=== PATIENT | female | born 1960 | race Caucasian/White ===

== ENCOUNTER 2024-05-10 14:01 | Emergency (ER) | payer BC, SELFPAY ==
[2024-05-10 14:06] VITALS: BP 136/74
[2024-05-10 15:01] LABS: % Basophils 0.8 % (0-2); % Eosinophils 1.5 % (0-6); % Immature Granulocytes 0.3 % (0-0.5); % Monocytes 6.2 % (1.7-9.3); % Neutrophils 71.2 % (42.2-75.2); Absolute Basophils 0.1 10^3/uL (0-0.2); Absolute Eosinophils 0.1 10^3/uL (0-0.7); Absolute Lymphocytes 1.8 10^3/uL (1.2-3.4); Absolute Monocytes 0.6 10^3/uL (0.1-0.6); Absolute Neutrophils 6.3 10^3/uL (1.4-6.5); Hematocrit 41.6 % (37.0-47.0); Hemoglobin 14.1 g/dL (12.0-16.0); Mean Corp Hgb Conc. 33.9 g/dL (33.0-37.0); Mean Corpuscular Hgb 28.3 pg (27.0-31.0); Mean Corpuscular Volume 83.5 fL (81.0-99.0); Mean Platelet Volume 9.6 fL (7.4-10.4); Nucleated Red Blood Cells % 0 %; Platelet Count 268 10^3/uL (130-400); Red Blood Cell Count 4.98 10^6/uL (4.20-5.40); Red Cell Dist. Width 12.9 % (11.5-14.5); White Blood Cell Count 8.8 10^3/uL (4.8-10.8)
[2024-05-10 15:17] LABS: ALT (SGPT) 22 U/L (0-35); AST (SGOT) 22 U/L (14-36); Albumin 4.3 g/dl (3.5-5.0); Alkaline Phosphatase 68 U/L (38-126); Blood Urea Nitrogen 24 mg/dl (7-17); Calcium 9.8 mg/dl (8.4-10.2); Carbon Dioxide 28 mmol/L (22-30); Chloride 103 mmol/L (98-107); Glucose 142 mg/dl (70-99); Potassium 4.4 mmol/L (3.5-5.1); Sodium 138 mmol/L (135-145); Total Bilirubin 0.5 mg/dl (0.2-1.3); Total Protein 6.5 g/dl (6.3-8.2); eGFR > 60.00
--- NOTE | 2024-05-10 15:43 | ED.GENMED ---
History of Present Illness
General
Chief Complaint: Musculo-Skeletal Complaint
Source: patient
Exam Limitations: none
Time Seen by Provider: 05/10/24 15:29
History of Present Illness
History of Present Illness:
63yoF with a history of prior neck surgery and prior R rotator cuff surgery presenting for evaluation of right shoulder pain x 3 weeks. Patient had a hysterectomy in the beginning of March and she was mostly bed bound for a few weeks. Patient
started with pain in her R shoulder a few weeks ago and she now has right sided neck pain the past few days. She denies any trauma or inciting incident. Pain is worse with movement. She has been to her chiropractor as well as her massage therapist
without improvement. She has been taking naproxen and Tylenol without relief. She also had leftover Tramadol that did not help. She took one dose of leftover oxycodone one night that helped her sleep. She has an MRI of her shoulder scheduled for
next month. She was not sure what to do and decided to come to the ED. No paresthesias, chest pain, shortness of breath.
Past History
Past History
ED Past Medical History: Psychiatric (Anxiety and hyperventilation syndrome. )
ED Past Surgical History: Gynecological (D&C, uterine ablation, on February 27 this year.)
Social History
Tobacco: Non-smoker
Alcohol: Occasional
Drug: None
Personal:
Living: with family
Employment: Employed
Family History
Family History: Other (Noncontributory)
Phy Exam
Physical Exam
Physical Exam:
Appears uncomfortable, non-toxic
General Physical Exam
General Presentation: well appearing
General age: appears stated age
General Skin: warm and dry
General Habitus: normal
General Mental: alert
ENT Exam
ENT Exam: normocephalic and other (No tenderness to palpation of cervical area although pain is elicited with rotation and flexion/extension of neck. No skin changes. No meningismus. )
Cardiovascular Exam
Cardiovascular Exam: normal peripheral pulses (2+ R radial pulse)
Neurological Exam
Neurological Exam: alert
[place] Coma Scale
Eye Opening: Spontaneous
Verbal Response: Oriented
Motor Response: Obeys Commands
GCS Total Score: 15
Musculoskeletal Exam
Musculoskeletal Exam: other (R shoulder is normal to inspection. She has pain with abduction above 90 degrees. )
Skin Exam
Skin Exam: normal color and warm/dry
Psychiatric Exam
Psychiatric Exam: normal mood/affect
Course
Orders/Labs/Results
Orders:
Orders
05/10/24 14:11
Electrocardiogram (*1) Urgent
Reason for Study: Other
Other Reason for Exam: neck pain, R shoulder
EKG- Treatment ONCE
05/10/24 14:26
Complete Blood Count/With Diff Urgent
Comprehensive Metabolic Panel Urgent
05/10/24 15:39
CT Cervical Spine W/o Iv Contr Urgent
Comment:
Reason For Exam: neck pain
Ketorolac [Toradol] 15 mg IV NOW STA
diazePAM [Valium Injection] 5 mg IV NOW STA
CR Shoulder - Right Min 2 View Urgent
Comment:
Reason For Exam: atraumatic pain
05/10/24 15:40
Lidocaine [Lidocaine 4% Patch] 1 patch TOPICAL ONCE ONE
Apply Lidocaine patch(s) to:: R neck
05/10/24 17:50
Ketorolac [Toradol] 15 mg IV NOW STA
05/10/24 17:58
Hydrocodone 5/APAP 325 [[place] 5/325] 1 tablet PO NOW STA
Abnormal Lab Results
05/10/24
14:26
Lymphocytes % 20.0 L %
(20.5-51.1)
BUN 24 H mg/dl
(7-17)
Glucose 142 H mg/dl
(70-99)
05/10/24 14:26
05/10/24 14:26
Vital Signs
Initial and Last Documented VS:
Initial Vital Signs
Temp Pulse Resp BP Pulse Ox
98.4 F 81 22 136/74 100
05/10/24 14:06 05/10/24 14:06 05/10/24 14:06 05/10/24 14:06 05/10/24 14:06
Last Documented Vital Signs
Temp Pulse Resp BP Pulse Ox
98.4 F 81 22 136/74 100
05/10/24 14:06 05/10/24 14:06 05/10/24 14:06 05/10/24 14:06 05/10/24 14:06
MDM/Problems Addressed
Differential Diagnosis Includes:
63yoF here with R shoulder pain x 3 weeks with R sided neck pain over the past several days. Worse with movement. No trauma. Hx of prior rotator cuff surgery. VSS. She is non-toxic appearing. There is pain with neck rotation on exam. Differential
diagnosis includes but is not limited to: muscular strain/spasm, cervical radiculopathy, calcific tendonitis, rotator cuff pathology
Initial ED plan: Basic labs and EKG obtained in triage which are unremarkable. Will check CT cervical spine and R shoulder x-rays. IV Valium, Toradol, and lidocaine patch ordered for pain.
*EKG
Interpreted by ED Provider?: Yes
EKG Intrepretation Date: 05/10/24
Heart Rate: 75
Rate: normal
Rhythm: sinus
[place]: normal axis
Interval: normal interval
QRS Pattern: normal QRS
Ischemia: no ischemia
*Critical Care Note
Total Time (30-74mins, 75-104mins- exclusive of procedures): Not Applicable
Update Note
Update Note:
Patient signed out to Hermila HENNING pending imaging results. No acute abnormality seen on R shoulder x-rays per my interpretation. Prescriptions for prednisone and Valium sent to her pharmacy. Will plan on outpatient f/u with orthopedics and
pain management.
ED Attending Note
-
Portions of this chart may have been created with voice recognition software.� Occasional wrong word or��sound alike� substitutions may have occurred due to the inherent limitations of voice recognition software.
Discharge Plan
Departure
Patient Disposition: Home (Routine Discharge)
Date of Disposition: 05/10/24
Time of Disposition: 17:55
Patient with high blood pressure during this ER visit?: No
Discharge Problem:
Neck pain on right side, Acute pain of right shoulder
Instructions: Muscle and Bone Pain (DC)
Prescriptions:
New
prednisone 50 mg tablet
50 mg PO DAILY Qty: 5 0RF
diazepam [Valium] 5 mg tablet
5 mg PO TID PRN (Reason: muscle spasm) Qty: 9 0RF
No Action
multivitamin with folic acid [Tab-A-Dameon] 1 TABLET tablet
1 tab PO DAILY
hydrocodone-acetaminophen 1 TABLET tablet
1 tab PO Q4HPRN PRN (Reason: pain) Qty: 12 0RF
cyclobenzaprine 10 MG tablet
10 mg PO TIDPRN PRN (Reason: spasm) Qty: 9 0RF
Referrals:
Mendel Gonzalez MD [Active] -
RAY CLAROS CRNP [Family Provider] -
Pee Johnson MD [Active] -
Activity Restrictions/Additional Instructions:
Take prednisone as prescribed. Continue taking Tylenol and ibuprofen as needed. Take Valium only as needed for breakthrough pain/spasms.
Please follow-up with orthopedics and pain management. Return to the ER with any new or worsening symptoms.
Interventions
Interventions:
*Risk Screen - Suicide Last Done: 05/10/24 15:49
*General Assessment Last Done: 05/10/24 15:49
*Neglect/Abuse Screening Last Done: 05/10/24 15:49
*ED COVID-19 Vaccine History Last Done: 05/10/24 15:49
*Nursing Disposition Last Done: 05/10/24 18:15
ED-Musculoskeletal Assessment Last Done: 05/10/24 15:58
Discharge Date and Time
Discharge Date/Time: 05/10/24 18:16
Print Language: MONGOLIAN
[2024-05-10] MEDS: TORADOL 15 MG IV ×2 (15:50→17:54)
[2024-05-10] MEDS: VALIUM INJECTION 5 MG IV (15:50)
[2024-05-10] MEDS: LIDOCAINE 4% PATCH 1 PATCH TOPICAL (15:57)
[2024-05-10] MEDS: NORCO 5/325 1 TABLET PO (18:02)
== END 2024-05-10 18:16 | disposition home or self-care (01) ==
LOC: EMR 14:01
PROVIDERS: Emergency Medicine; EMERGENCY PHYSICIAN Emergency Medicine; FAMILY PHYSICIAN Nurse Practitioner Gerontology
DX: M25.511 Pain in right shoulder (principal); M54.2 Cervicalgia; Z98.890 Other specified postprocedural states
CPT/HCPCS: 99285; 96374; 96375; 96376; 72125; 73030; 80053; 85025; 93005

== ENCOUNTER → 2024-05-18 06:58 | Outpatient (REF) | payer BC, SELFPAY | LOC: MRI 06:58 | PROVIDERS: ATTENDING PHYSICIAN Orthopaedic Surgery; FAMILY PHYSICIAN Nurse Practitioner Gerontology | DX: M25.511 Pain in right shoulder (principal) | CPT/HCPCS: 73221 ==

== ENCOUNTER → 2024-05-20 18:04 | Outpatient (REF) | payer BC, SELFPAY | LOC: MRI 18:04 | PROVIDERS: ATTENDING PHYSICIAN Pain Medicine Interventional Pain Medicine; FAMILY PHYSICIAN Nurse Practitioner Gerontology | DX: M54.12 Radiculopathy, cervical region (principal) | CPT/HCPCS: 72141 ==

== ENCOUNTER 2024-06-04 18:03 | Inpatient (IN) | payer BC, SELFPAY ==
[2024-06-04] VITALS (10 sets, daily range): BP systolic 105–155; BP diastolic 63–93; BMI 25.9; BMI 25.1
[2024-06-04 10:42] LABS: % Basophils 0.5 % (0-2); % Eosinophils 0.8 % (0-6); % Immature Granulocytes 0.7 % (0-0.5); % Lymphocytes 9.3 % (20.5-51.1); % Monocytes 4.4 % (1.7-9.3); % Neutrophils 84.3 % (42.2-75.2); Absolute Basophils 0.1 10^3/uL (0-0.2); Absolute Eosinophils 0.1 10^3/uL (0-0.7); Absolute Immature Granulocytes 0.1 10^3/uL (0-0.05); Absolute Lymphocytes 1.5 10^3/uL (1.2-3.4); Absolute Monocytes 0.7 10^3/uL (0.1-0.6); Absolute Neutrophils 13.8 10^3/uL (1.4-6.5); Hematocrit 46.1 % (37.0-47.0); Hemoglobin 15.6 g/dL (12.0-16.0); Mean Corp Hgb Conc. 33.8 g/dL (33.0-37.0); Mean Corpuscular Hgb 27.9 pg (27.0-31.0); Mean Corpuscular Volume 82.5 fL (81.0-99.0); Mean Platelet Volume 8.9 fL (7.4-10.4); Nucleated Red Blood Cells % 0 %; Platelet Count 295 10^3/uL (130-400); Red Blood Cell Count 5.59 10^6/uL (4.20-5.40); Red Cell Dist. Width 13.2 % (11.5-14.5); White Blood Cell Count 16.4 10^3/uL (4.8-10.8)
[2024-06-04 10:57] LABS: ALT (SGPT) 23 U/L (0-35); AST (SGOT) 22 U/L (14-36); Albumin 4.8 g/dl (3.5-5.0); Alkaline Phosphatase 87 U/L (38-126); Blood Urea Nitrogen 23 mg/dl (7-17); Calcium 10.2 mg/dl (8.4-10.2); Carbon Dioxide 15 mmol/L (22-30); Chloride 100 mmol/L (98-107); Glucose 120 mg/dl (70-99); Potassium 4.1 mmol/L (3.5-5.1); Sodium 135 mmol/L (135-145); Total Bilirubin 1.2 mg/dl (0.2-1.3); Total Protein 7.2 g/dl (6.3-8.2); eGFR > 60.00
[2024-06-04 12:15] LABS: D-Dimer < 0.27 ug/mlFEU (0.00-0.50)
[2024-06-04] MEDS: NSS 1000 IV (12:25)
[2024-06-04 15:02] LABS: Urine Albumin 1+ (Neg - Trace); Urine Bilirubin Negative (Negative); Urine Character Clear (Clear); Urine Color Yellow; Urine Glucose 4+ (Negative); Urine Ketone 3+ (Negative); Urine Leukocyte Negative (Negative); Urine Nitrite Negative (Negative); Urine Occult Blood 1+ (Negative); Urine Specific Gravity 1.025 (<1.030); Urine Urobilinogen Negative (Neg - 1+)
[2024-06-04 15:13] LABS: Urine Squamous Cell >30 /LPF (Few)
[2024-06-04 15:14] LABS: Urine Red Blood Cell 0-2 /HPF (0-2); Urine White Cell 0-2 /HPF (0-5)
[2024-06-04 15:19] LABS: Troponin I < 0.012 ng/ml
[2024-06-04] MEDS: ROXICODONE 5 MG PO (15:20)
[2024-06-04 15:30] LABS: COVID-19 Antigen Negative (Negative)
[2024-06-04 15:32] LABS: Venous Blood Gas B.E. -8.4 mmol/L (-4 to +4); Venous Blood Gas HCO3 16.5 mmol/L (22-27); Venous Blood Gas O2 Sat % 71.1 %; Venous Blood Gas pCO2 32 mmHg (35-48); Venous Blood Gas pH 7.32 (7.32-7.43); Venous Blood Gas pO2 40 mmHg (30-50)
--- NOTE | 2024-06-04 16:07 | ED.GENMED ---
History of Present Illness
General
Chief Complaint: Heart Rate Problem
Source: patient and spouse
Exam Limitations: none
Time Seen by Provider: 06/04/24 10:54
Nursing documentation reviewed up to this point in time: agreed with
History of Present Illness
History of Present Illness:
63-year-old female presents emergency room complaining rapid heart rate, feeling extremely tired after having had a discectomy on her neck last Monday at [facility].
Past History
Past History
ED Past Medical History: Psychiatric (Anxiety and hyperventilation syndrome. )
ED Past Surgical History: Gynecological (D&C, uterine ablation, on February 27 this year.)
Social History
Tobacco: Non-smoker
Alcohol: Occasional
Drug: None
Personal:
Living: with family
Employment: Employed
Family History
Family History: Other (Noncontributory)
Review of Systems
Review of Systems
Allergies reviewed?: Yes
All Other Systems: Not applicable
Constitutional: Reports no symptoms
EENT: Reports no symptoms
Respiratory: Reports no symptoms
Cardiac: Reports palpitations
ABD/GI: Reports no symptoms
: Reports no symptoms
Musculoskeletal: Reports no symptoms
Skin: Reports no symptoms
Neurological: Reports no symptoms
Endocrine: Reports no symptoms
Hematologic/Lymphatic: Reports no symptoms
Psychiatric: Reports no symptoms
Phy Exam
Physical Exam
Physical Exam:
Physical Exam
General: no apparent distress, not acutely ill
Neck: supple. no meningeal signs. normal posterior pharynx
Heart: s1/s2 tachycardia, no murmur. equal radial
pulses.
HEENT: Pupils equal round reactive to light, EOMI
Lungs: no acute respiratory distress. clear bilaterally
Abdomen: normal bowel sounds. not tender. no CVAT
Neuro: alert and oriented. no focal neurological deficits cranial nerves II through XII intact
Skin: no rash, wound clean dry and intact, praneeth intact
Psychiatric: well kept. interactive and cooperative
Extremities: no edema. no calf tenderness. negative homans. good distal pulses
Sepsis
Sepsis Screening
Sepsis Assessment: Sepsis Ruled Out
Sepsis Screen
Sepsis Screen: Sepsis Ruled Out
Date: 06/04/24
Time: 16:14
Course
Orders/Labs/Results
Orders:
Orders
06/04/24 10:07
EKG [Electrocardiogram (*1)] Urgent
Reason for Study: Tachycardia
EKG- Treatment ONCE
06/04/24 10:32
CMP [Comprehensive Metabolic Panel] Urgent
Complete Blood Count/With Diff Urgent
Blood Culture Urgent
OMAR Source: Blood/Venous
Specimen Description:
06/04/24 11:28
CT Chest PE Study Urgent
Comment:
Reason For Exam: short of breath, tachycardia, recent neck surgery
06/04/24 11:45
D-Dimer Urgent
06/04/24 12:17
0.9% Sodium Chloride 1000 ml [Nss] 1,000 ml IV BOLUS
06/04/24 14:48
COVID-19 Antigen Urgent
Source: Nasal Swab
Troponin I Urgent
Urinalysis Reflex To Culture Urgent
Date Specimen was Collected: 06/04/24
Time Specimen was Collected: 14:35
Urine Microscopic Reflex Cult Urgent
Influenza A+B Rapid Molecular Urgent
OMAR Source: Nasal Swab
Specimen Description:
06/04/24 15:16
Oxycodone [Roxicodone] 5 mg PO NOW STA
06/04/24 15:21
Venous Blood Gas Urgent
%Oxygen/Room Air: 99
Abnormal Lab Results
06/04/24 06/04/24 06/04/24
10:32 14:48 15:21
WBC 16.4 H 10^3/uL
(4.8-10.8)
RBC 5.59 H 10^6/uL
(4.20-5.40)
Abs Immat Gran (auto) 0.1 H 10^3/uL
(0-0.05)
Absolute Neuts (auto) 13.8 H 10^3/uL
(1.4-6.5)
Absolute Monos (auto) 0.7 H 10^3/uL
(0.1-0.6)
Immature Gran % 0.7 H %
(0-0.5)
Neutrophils % 84.3 H %
(42.2-75.2)
Lymphocytes % 9.3 L %
(20.5-51.1)
VBG pCO2 32 L mmHg
(35-48)
VBG HCO3 16.5 L mmol/L
(22-27)
Carbon Dioxide 15 L mmol/L
(22-30)
BUN 23 H mg/dl
(7-17)
Glucose 120 H mg/dl
(70-99)
Urine Ketones 3+ A
(Negative)
Ur Occult Blood Reflex 1+ A
(Negative)
Urine Glucose 4+ A
(Negative)
Urine Albumin (Reflex) 1+ A
(Neg - Trace)
06/04/24 10:32
06/04/24 10:32
Vital Signs
Initial and Last Documented VS:
Initial Vital Signs
Temp Pulse Resp BP Pulse Ox
97.6 F 124 22 123/87 99
06/04/24 10:16 06/04/24 10:16 06/04/24 10:16 06/04/24 10:16 06/04/24 10:16
Last Documented Vital Signs
Temp Pulse Resp BP Pulse Ox
97.6 F 124 17 105/63 100
06/04/24 10:16 06/04/24 15:22 06/04/24 15:00 06/04/24 15:22 06/04/24 15:22
MDM/Problems Addressed
Differential Diagnosis Includes:
Heart dysrhythmia, PE, metabolic acidosis
MDM/Problems Addressed:
63-year-old female with metabolic acidosis, tachycardia, unclear etiology. Admit to hospitalist for further evaluation.
*Radiology
Radiology exam reviewed: radiology read reviewed (CT chest no signs of PE)
*Pulse Oximetry
Patient hypoxic: no
*EKG
Interpreted by ED Provider?: Yes
EKG Intrepretation Date: 06/04/24
EKG Intrepretation Time: 10:12
Interpretation: abnormal
Comparison EKG: changes noted
Heart Rate: 124
Rate: tachycardiac
Rhythm: sinus tachycardia
[place]: normal axis
Interval: normal interval
QRS Pattern: normal QRS
Ischemia: no ischemia
*Underground Drill Operator Interpretation
Rate: tachycardiac
Interpretation: abnormal
Heart Rate: 123
Rhythm: sinus tachycardia
*Critical Care Note
Total Time (30-74mins, 75-104mins- exclusive of procedures): Not Applicable
Patient Management
Social determinants of health affecting care: Living situation and Strong social support
Discussion with other providers: Hospitalist
Escalation/DeEscalation of care consider admission/obs:
admit indicated
ED Attending Note
-
Portions of this chart may have been created with voice recognition software.� Occasional wrong word or��sound alike� substitutions may have occurred due to the inherent limitations of voice recognition software.
Discharge Plan
Departure
Patient Disposition: Admit
Date of Disposition: 06/04/24
Time of Disposition: 16:05
Admit to: Telemetry
Presentation/result/management discussed w/ accepting MD/DO: Hospitalist
Patient with high blood pressure during this ER visit?: Yes
Condition: Fair
Discharge Problem:
Metabolic acidosis, Tachycardia
Prescriptions:
No Action
multivitamin with folic acid [Tab-A-Dameon] 1 TABLET tablet
1 tab PO DAILY
hydrocodone-acetaminophen 1 TABLET tablet
1 tab PO Q4HPRN PRN (Reason: pain) Qty: 12 0RF
cyclobenzaprine 10 MG tablet
10 mg PO TIDPRN PRN (Reason: spasm) Qty: 9 0RF
prednisone 50 mg tablet
50 mg PO DAILY Qty: 5 0RF
diazepam [Valium] 5 mg tablet
5 mg PO TID PRN (Reason: muscle spasm) Qty: 9 0RF
Referrals:
RAY CLAROS CRNP [Family Provider] -
Interventions
Interventions:
*Risk Screen - Suicide Last Done: 06/04/24 11:12
*General Assessment Last Done: 06/04/24 11:12
*Neglect/Abuse Screening Last Done: 06/04/24 11:12
*ED- Fall Risk Assessment Last Done: 06/04/24 11:12
*ED COVID-19 Vaccine History Last Done: 06/04/24 10:21
ED- Cardiac Assessment Last Done: 06/04/24 11:19
ED- Pulmonary Assessment Last Done: 06/04/24 11:19
Discharge Date and Time
Print Language: MAURITANIAN
--- NOTE | 2024-06-04 17:54 | HPS.HSE ---
Addendum entered and electronically signed by Lindsey Strauss MD 06/04/24 19:21:
I personally performed a history and physical exam of the patient and discussed management with the resident. I reviewed the resident's note and agree with the documented findings and plan of care HPI/CC.
63-year-old female had Posterior Cervical Foraminotomy and Diskectomy of the right C4-C5 at [place] [facility] on . She was off of Jardiance and Mounjaro for the surgery but she took Mounjaro on Monday. She started Jardiance Monday. She has been not
feeling well and not eating Much. Slightly nauseous became tachycardic. They decided to come to the ER
On examination awake alert oriented
Cardiovascular system S1-S2 tachycardic
Chest clear to auscultation
Posterior cervical spine incision healing well
Neuro exam-patient cannot abduct the right shoulder, good elbow flexion extension good 5 x 5 strength hand grasp
Patient states that she could not move the right arm at all and this is Much better than how she was prior to surgery. She still does not have shoulder abduction or able to lift her right arm up.
Tachycardia metabolic acidosis ketoacidosis
Likely secondary to poor p.o. intake, recent surgery and SGLT2 inhibitor.
CT PE study without any evidence of PE
Urinalysis without any evidence of infection. Shows ketonuria
Surgical site looks stable
Abdomen soft and nontender
No pneumonia on CT
Blood cultures pending
Hold SGLT2 inhibitors
IV fluids
Allow carbohydrate intake , encourage p.o. intake
Repeat labs later tonight
BMP again in the morning
If tachycardia still persist will get echo in the morning
Original Note:
Family Physician
-
Family Physician: MILADY OVALLES
Chief Complaint
-
Metabolic Acidosis and Tachycardia
History of Present Illness
63 year old female with a past medical history of anxiety, depression, type 2 diabetes and hyperventilation syndrome comes to the [place] ED with recent history of rapid heart rate, having very little appetite, and feeling extremely tired.
Patient recently had a Posterior Cervical Foraminotomy and Diskectomy of the right C4-C5 done at [facility] on 05/31/2024. She was found to have Fusion of the C5-C7 vertebrae and Herniation of the C4-C5. Patient was rushed for surgery as she was
developing extreme weakness of her right arm. Patient had stopped her diabetes medication Mounjaro and Jardiance a week before the surgery. Patient restarted the Mounjaro on Monday after her surgery and resumed her Jardiance the day after on
Monday. Patient says that she has been taking Mounjarou and Jardiance for many years and has not had any symptoms with their use. She says her appetite has been pretty healthy as well usually. Patient's symptoms of fatigue, nausea, lack of
appetite, and increased heart rate started later on Monday but started getting worse on Monday. She did not have any chest pain but did have heart palpitations since Monday. These symptoms continued to get worse and patient came to the hospital
once her increased heart rate and fatigue started to impede her life. Patient was given muscle relaxants, gabapentin and oxycodone after surgery which she has been taking as needed. Patient was also given a few tablets of prednisone to take to help
with the inflammation as well. Patient has several praneeth on her neck from her surgery and the area of the surgery is healing well though it is still sore.
Medical History
Past Medical History
Past Medical History: Reports Hypothyroidism, NIDDM and Psychiatric (Anxiety and Depression)
Past Surgical History: Reports Gynocological (D&C, uterine ablation, on February 27 this year) and Other (Posterior Cervical Foraminotomy and Diskectomy of the right C4-C5)
Social History
Tobacco: Non-smoker
Alcohol: Occasional
Drug: None
Personal:
Living: With Family
Employment: Employed
Family History
Family History: Diabetes
Allergies / Home Medications
Allergies reflects when Allergies were last updated in [facility].
Home Medications with original date entered in [facility]
Allergy/Medication List:
Allergies
Allergy/AdvReac Type Severity Reaction Status Date / Time
No Known Allergies Allergy Verified 06/04/24 10:21
Home Medications
cyclobenzaprine 10 mg tablet 10 mg PO TIDPRN PRN spasm #9 tabs 02/10/16
empagliflozin 25 mg tablet (Jardiance) 25 mg PO DAILY 06/04/24
estradiol 0.05 mg-norethindrone 0.25 mg/24 hr semiwkly transderm patch (CombiPatch) 1 patch transdermal Q72H 06/04/24
gabapentin 300 mg capsule 300 mg PO TIDPRN PRN moderate pain 06/04/24
levocetirizine 5 mg tablet (Xyzal) 5 mg PO HS 06/04/24
levothyroxine 75 mcg tablet 75 mcg PO DAILY 06/04/24
oxycodone 5 mg tablet 5 mg PO Q8HPRN PRN severe pain 06/04/24
rosuvastatin 20 mg tablet 20 mg PO HS 06/04/24
therapeutic multivitamin 1 tab PO DAILY 06/04/24
tirzepatide 5 mg/0.5 mL subcutaneous pen injector (Mounjaro) 5 mg SC MO 06/04/24
Review of Systems
-
History Source: Patient
A 12 point ROS was completed and negative except as noted: Yes
Constitutional: Reports Fatigue
EENT: Reports No Symptoms
Respiratory: Denies Cough or Trouble Breathing
Cardiac: Reports Palpitations; Denies Chest Pain or Syncope
Abdomen/GI: Reports Nausea; Denies Abdominal Pain, Vomiting, Diarrhea or Constipated
: Reports No Symptoms
Musculoskeletal: Reports No Symptoms
Skin: Reports No Symptoms
Neurological: Reports Weakness (Weakness in flexion of right arm)
Endocrine: Reports No Symptoms
Hematologic/Lymphatic: Reports No Symptoms
Psych: Reports No Symptoms
Physical Exam
Vital Signs
Vital Signs
Temp Pulse Resp BP Pulse Ox
97.6 F 118 16 123/71 99
06/04/24 10:16 06/04/24 16:30 06/04/24 16:00 06/04/24 17:00 06/04/24 17:00
Physical Exam
General: Well Developed, Well Nourished, Conversant, Appears in Distress and Poor Appetite
HEENT: NormoCephalic, Anicteric, Moist mucous membranes and Atraumatic
Respiratory: Clear and Non Labored Respirations
Cardiac: S1/S2, Regular Rhythm and Tachycardia
GI: Soft, Non Tender, Non Distended and Normal Bowel Sounds
Musculoskeletal: No Clubbing, No Cyanosis and No Edema
Skin: Warm and Dry
Neuro: Awake, Alert, Oriented, AO x 3 and Other (Weakness in Flexion of Right Arm (Stronger than before))
Hematologic/Lymphatic: No Lymphadenopathy
Psych: Calm
Laboratory Results
-
06/04/24 10:32
06/04/24 10:32
Laboratory Results
Total Bilirubin 1.2 mg/dl (0.2-1.3) 06/04/24 10:32
AST 22 U/L (14-36) 06/04/24 10:32
ALT 23 U/L (0-35) 06/04/24 10:32
Alkaline Phosphatase 87 U/L (38-126) 06/04/24 10:32
Troponin I < 0.012 ng/ml 06/04/24 14:48
Data Reviewed
-
CT Scan: Report Reviewed by me, Discussed with Physician and Discussed with Patient
Medical Tests (Nuc Med, Echo, EKG etc): Report Reviewed by me, Discussed with Physician and Discussed with Patient
Lab Data: Labs Reviewed by me, Discussed with Physician and Discussed with Patient
Impression/Plan
-
Assessment:
63 year old female with a past medical history of anxiety, depression, type 2 diabetes, and hyperventilation syndrome presents to the [place] ED for recent history of increased heart rate and fatigue following her recent surgery. Patient had a
Discectomy for her cervical spine on 05/31/2024 and developed symptoms after starting her diabetes medications after surgery. In the ED, patient was found to have metabolic acidosis and tachycardia. EKG and CTA did not show any abnormalities. UA
showed there was some Ketonuria and Glucosuria. Patient was admitted to the hospital for management of her metabolic acidosis and monitoring of her tachycardia.
Plan:
#Metabolic Acidosis secondary to resumption of diabetes medication
-Patient found to have low bicarbonate levels along with high BUN levels
-Will Give Bicarbonate 150meq
-Monitor CMP after giving fluids
-Resuming diet and holding Jardiance and Mounjaro
-Treat Nausea and Vomiting as needed
#Type 2 Diabetes without use of Insulin
-Will hold patient's current medications of Jardiance and Mounjaro
-Will check HbA1c
-Insulin sliding scale as needed
#Leukocytosis
-Most likely transient from recent surgery and steroid treatment
-Will continue to monitor CBC
#Tachycardia
-Most likely due to metabolic acidosis
-Can get 2d echo in the morning if tachycardia persists after Bicarbonate treatment
#Hypothyroidism
-Continue Levothyroxine
#Hyperlipidemia
-Continue Atorvastatin
#Post surgery pain and tenderness
-Continue pain management as needed
Full Code
DVT Prophylaxis: Lovenox
Diet: Diabetic Diet 2000 calories
[2024-06-04] MEDS: LR 1000 IV (19:53)
[2024-06-04] MEDS: LOVENOX 40 MG SC (19:54)
[2024-06-04] MEDS: SENOKOT 17.2 MG PO (19:54)
--- NOTE | 2024-06-04 20:00 | TRANSFER ---
pt arrived from ED via stretcher accompanied by staff. pt walked independently from stretcher to bed with this RN as a standby assist. VSS, pt alert and oriented, no new complaints. call ramos within reach, will continue to monitor closely.
[2024-06-04 20:03] LABS: Glucose - Point of Care 130 mg/dl (70-99)
[2024-06-04] MEDS: CRESTOR 20 MG PO (20:07)
[2024-06-04 20:19] LABS: TSH 0.39 uIU/ml (0.47-4.68)
[2024-06-04 21:11] LABS: ALT (SGPT) 19 U/L (0-35); AST (SGOT) 19 U/L (14-36); Albumin 3.9 g/dl (3.5-5.0); Alkaline Phosphatase 71 U/L (38-126); Blood Urea Nitrogen 16 mg/dl (7-17); Calcium 9.4 mg/dl (8.4-10.2); Carbon Dioxide 12 mmol/L (22-30); Chloride 106 mmol/L (98-107); Estimated Creatinine Clearance 96 ml/min; Glucose 159 mg/dl (70-99); Potassium 3.6 mmol/L (3.5-5.1); Sodium 133 mmol/L (135-145); Total Bilirubin 0.8 mg/dl (0.2-1.3); Total Protein 6.2 g/dl (6.3-8.2); eGFR > 60.00
[2024-06-04 21:21] LABS: Glucose - Point of Care 171 mg/dl (70-99)
[2024-06-04] MEDS: LR 500 IV (21:43)
[2024-06-05] MEDS: SODIUM BICARBONATE 1150 MEQ IV (00:10)
[2024-06-05] MEDS: TUMS CHEWABLE TABLET 400 MG PO ×2 (00:24→15:05)
[2024-06-05] MEDS: ROXICODONE 5 MG PO (00:29)
[2024-06-05 00:52] LABS: Blood Urea Nitrogen 16 mg/dl (7-17); Calcium 9.7 mg/dl (8.4-10.2); Carbon Dioxide 16 mmol/L (22-30); Chloride 105 mmol/L (98-107); Estimated Creatinine Clearance 96 ml/min; Glucose 107 mg/dl (70-99); Sodium 133 mmol/L (135-145); eGFR > 60.00
[2024-06-05 03:48] VITALS: BP 137/86
[2024-06-05] MEDS: SYNTHROID 75 MCG PO (05:25)
[2024-06-05] MEDS: TYLENOL 650 MG PO ×2 (07:04→12:35)
[2024-06-05 07:14] LABS: Hematocrit 37.1 % (37.0-47.0); Hemoglobin 13.2 g/dL (12.0-16.0); Mean Corp Hgb Conc. 35.6 g/dL (33.0-37.0); Mean Corpuscular Hgb 28.6 pg (27.0-31.0); Mean Corpuscular Volume 80.3 fL (81.0-99.0); Mean Platelet Volume 9.4 fL (7.4-10.4); Platelet Count 257 10^3/uL (130-400); Red Blood Cell Count 4.62 10^6/uL (4.20-5.40); Red Cell Dist. Width 13.4 % (11.5-14.5); White Blood Cell Count 9.9 10^3/uL (4.8-10.8)
[2024-06-05 07:26] VITALS: BP 115/76
[2024-06-05] MEDS: THERAGRAN 1 TABLET PO (08:04)
[2024-06-05 08:10] LABS: Hepatitis C Antibody Negative (Negative)
[2024-06-05 08:12] LABS: Glucose - Point of Care 118 mg/dl (70-99)
[2024-06-05] MEDS: SENOKOT PO (08:12)
[2024-06-05 08:24] LABS: Blood Urea Nitrogen 15 mg/dl (7-17); Calcium 9.6 mg/dl (8.4-10.2); Carbon Dioxide 17 mmol/L (22-30); Chloride 105 mmol/L (98-107); Estimated Creatinine Clearance 96 ml/min; Glucose 89 mg/dl (70-99); Potassium 4.1 mmol/L (3.5-5.1); Sodium 134 mmol/L (135-145); eGFR > 60.00
[2024-06-05 09:21] LABS: Glycohemoglobin (HgbA1c) 8.3 % (4.0-5.6)
--- NOTE | 2024-06-05 11:04 | CM ---
Initial assessment completed. Admitted for Metabolic Acidosis and Tachycardia. Patient is a 63 year old female with a past medical history of anxiety, depression, type 2 diabetes and hyperventilation syndrome comes to the [place] ED with recent
history of rapid heart rate, having very little appetite, and feeling extremely tired.
Patient resides w/ spouse in a 2STH- 2 steps to enter the home. Patient is independent w/ ambulating and ADLs, no DME identified or required. Patient engaged in OP therapy in the past, no SNF/VN/PT hx. Patient is active and plays golf.
Address, point of contact and insurance verified
PCP: Mariya Martin
Pharmacy: [facility]
Plan: Anticipate home; no needs
[2024-06-05 11:50] VITALS: BP 133/91
[2024-06-05] MEDS: SODIUM BICARBONATE IV (12:35)
[2024-06-05 12:54] LABS: Glucose - Point of Care 95 mg/dl (70-99)
--- NOTE | 2024-06-05 12:59 | W.PN.UPDATE ---
Update Note
Progress Note Update
I saw and evaluated the patient. I reviewed the resident�s note and agree with findings and plan as documented in the resident�s note except for changes in my documentation.
Seen earlier. Late documentation
63-year-old female had Posterior Cervical Foraminotomy and Diskectomy of the right C4-C5 at [place] on . She was off of Jardiance and Mounjaro for the surgery but she took Mounjaro on Monday. She started Jardiance Monday. She has been not
feeling well and not eating Much. Slightly nauseous became tachycardic. They decided to come to the ER
Patient states that she feels Much better. Only slept 2 hours last night therefore wants to go home.
Neck pain is much better she declined lidocaine patch offered.
States that if she were home she would not take anything for pain.
Tachycardia is also Much better
Cardiovascular system S1-S2 normal
Chest clear to auscultation
Abdomen soft and nontender
C-spine incision stable
Right arm shoulder abduction extension not possible good hand grasp and elbow flexion and extension
# Metabolic acidosis
Likely secondary to poor p.o. intake and also SGLT2 inhibitor
Stopped SGLT2 inhibitors, I be very hesitant to restart it. Will defer to primary
Fluids with bicarb stopped as the patient wants to go home today. We will repeat labs later this afternoon to see how bicarb is
# Tachycardia likely secondary to metabolic acidosis
Heart rate Much better
Echo done-results pending
# Posterior Cervical Foraminotomy and Diskectomy of the right C4-C5 at [place] on .
Continue cyclobenzaprine, gabapentin, oxycodone as needed
# Qfxmxomy-Olmc-Irwsn and sliding scale coverage
# Hyperlipidemia-continue statin
# Hypothyroidism-continue Synthroid
# History of cervical cancer with LEEP procedure
# Anxiety
# DVT prophylaxis- SCDS
# Full code
D/W RN at bed side
[2024-06-05 13:09] LABS: Total Thyroxine 7.62 ug/dl (5.5-11.0)
--- NOTE | 2024-06-05 13:23 | W.PN.HOSP.TC ---
Today's Communication/Plan
-
Will check BMP at around 2 PM patient will be able to go home if her levels are okay
Assessment / Plan
Assessment / Plan
Assessment:
63 year old female with a past medical history of anxiety, depression, type 2 diabetes, and hyperventilation syndrome presents to the [facility] ED for recent history of increased heart rate and fatigue following her recent surgery of posterior
cervical foraminotomy and discectomy of the right C4-C5 at [facility] on 05/31/2024 and developed symptoms after starting her diabetes medications after surgery. In the ED, patient was found to have metabolic acidosis and tachycardia. EKG and CTA
did not show any abnormalities. UA showed there was some Ketonuria and Glucosuria. Patient was admitted to the hospital for management of her metabolic acidosis and monitoring of her tachycardia. Patient was given fluids and supportive therapy.
Her electrolyte levels improved but she still had some tachycardia without palpitations however. Patient underwent 2D echo due to her persistent tachycardia.
Plan:
#Metabolic Acidosis secondary to resumption of diabetes medication
-Patient found to have low bicarbonate levels along with high BUN levels
-Patient given bicarbonate and fluids
-Diet resumed and holding Jardiance and Mounjaro
-Treat Nausea and Vomiting as needed
-Patient's acidosis has improved with treatment, stopped IV fluids and patient will be able to go home if her BMP shows no abnormalities
#Type 2 Diabetes without use of Insulin
-Will hold patient's current medications of Jardiance and Mounjaro
-HbA1c 8.3
-Will need to follow-up with PCP in outpatient setting for better glycemic control
-Insulin sliding scale as needed
#Leukocytosis
-Most likely transient from recent surgery and steroid treatment
-Resolved
#Tachycardia
-Most likely due to metabolic acidosis
-Patient underwent 2D echo results pending
#Hypothyroidism
-Continue Levothyroxine
#Hyperlipidemia
-Continue Atorvastatin
#Post surgery pain and tenderness
-Continue pain management as needed with cyclobenzaprine, gabapentin, oxycodone as needed
Full Code
DVT Prophylaxis: SCDs
Diet: Diabetic Diet 2000 calories
Anticipated Discharge: Today
Subjective/Interval History
-
Date of Service: June 05, 2024
When seen this morning, patient stated that her heart palpitations had improved however she was feeling much pain at her surgery site on the back of her neck. Otherwise she had no abdominal pain no shortness of breath no chest pain and no nausea or
vomiting.
Objective Data
-
Labs:
Laboratory Results
06/05/24 06/05/24 06/05/24
06:14 07:16 14:00
WBC 9.9
Hgb 13.2
Hct 37.1
Plt Count 257
Sodium 134 L Cancelled Pending
Potassium 4.1 Cancelled Pending
Chloride 105 Cancelled Pending
Carbon Dioxide 17 L Cancelled Pending
BUN 15 Cancelled Pending
Creatinine 0.6 Cancelled Pending
Glucose 89 Cancelled Pending
Calcium 9.6 Cancelled Pending
Vital Signs:
Vital Signs
Temp Pulse Resp BP Pulse Ox
98.5 F 112 20 133/91 100
06/05/24 11:50 06/05/24 11:50 06/05/24 11:50 06/05/24 11:50 06/05/24 11:50
I&O
06/04/24 06/05/24 06/06/24
06:59 06:59 06:59
Intake Total 1580 / 1580
Balance 1580 / 1580
Review of Systems
-
History Source: Patient
Constitutional: Reports Weakness; Denies Fever or No Appetite
EENT: Reports No Symptoms Reported
Respiratory: Reports No Symptoms
Cardiac: Denies Chest Pain, Palpitations or Syncope
Abdomen/GI: Denies Abdominal Pain, Nausea, Vomiting or Diarrhea
Musculoskeletal: Reports Other (Tenderness and pain around incision site)
Skin: Reports No Symptoms
Neuro: Reports No Symptoms
Physical Exam
-
General: Well Developed, Well Nourished and Conversant
HEENT: Normocephalic and Atraumatic
Respiratory: Clear to Auscultation and Non Labored Respirations; Negative Wheezes
Cardiac: Regular Rhythm, S1/S2 and Tachycardic; Negative Murmur
GI: Soft, Nontender, Nondistended and Normal Bowel Sounds
Musculoskeletal: No Clubbing, No Cyanosis and No Edema
Skin: Warm
Neuro: Awake, Alert, Oriented and AO x 3
Psych: Calm
Data Reviewed
-
Labs: Labs Reviewed by me
[2024-06-05 15:06] LABS: Blood Urea Nitrogen 16 mg/dl (7-17); Calcium 9.7 mg/dl (8.4-10.2); Carbon Dioxide 23 mmol/L (22-30); Chloride 101 mmol/L (98-107); Estimated Creatinine Clearance 96 ml/min; Glucose 150 mg/dl (70-99); Potassium 3.9 mmol/L (3.5-5.1); Sodium 136 mmol/L (135-145); eGFR > 60.00
[2024-06-05 15:08] VITALS: BP 133/76
--- NOTE | 2024-06-05 17:02 | W.DCSUMMARY ---
Addendum entered and electronically signed by Lindsey Strauss MD 06/07/24 17:07:
Read, reviewed, and agree. See same day progress note for additional details. Time spent coordinating care, DC planning, review of DC plan of care with resident, transition of care, review of records in EMR, med rec, consults, notes, d/w
consultants, nursing, family.
Later patient was made aware about the cyst/cysts in the liver and that it needs imaging and further follow-up as outpatient.
Original Note:
Discharge Summary
Discharge Data
Date of Admission: 06/04/24
Date of Discharge: 06/05/24
-
Pending Results: No
Hospital Course
Discharging Physician : Dr. Jose Wolf, Dr. Lindsey Strauss
�
Disposition�:�Home
�
Primary�care�physician�: MILADY OVALLES
�
Principal�Discharge�Diagnosis�:� Metabolic acidosis
�
Chronic�Discharge�Diagnosis:�
Tachycardia likely secondary to metabolic acidosis
Posterior Cervical Foraminotomy and Diskectomy of the right C4-C5 at [facility] on
Type 2 Diabetes
Hyperlipidemia
Hypothyroidism
Anxiety
�
Hospital�Course :
63 year old female with a past medical history of anxiety, depression, type 2 diabetes, and hyperventilation syndrome presents to the [facility] ED for recent history of increased heart rate and fatigue following her recent surgery of posterior
cervical foraminotomy and discectomy of the right C4-C5 at [facility] on 05/31/2024 and developed symptoms after starting her diabetes medications after surgery. In the ED, patient was found to have metabolic acidosis and tachycardia. EKG and CTA
did not show any abnormalities. UA showed there was some Ketonuria and Glucosuria. Patient was admitted to the hospital for management of her metabolic acidosis and monitoring of her tachycardia. Patient was found to have metabolic acidosis induced
by her recent use of Mounjaro and Jardiance following her surgery. Patient was given fluids and supportive therapy. Her electrolyte levels improved but she still had some tachycardia without palpitations however. Patient underwent 2D echo due to
her persistent tachycardia however the echo did not show any abnormalities. Patient continued to feel well throughout the day and repeat BMP showed that her electrolyte levels were improving. Patient was discharged with instructions to not take
her Jardiance or Mounjaro until she is seen by her PCP/b2b outside sales representative.
�
Important�imaging�findings�:�
�
CT Chest PE Study (06/04/2024):
1. No CT evidence for pulmonary embolism.
2. Small amount of subsegmental atelectasis within both posterior lower lobes. No pleural effusion.
3. Numerous hepatic cysts measuring up to 7 cm within the dome.
4. Postoperative changes noted within the cervical spine.
Procedure�findings�:��
EKG (06/04/2024):
SINUS TACHYCARDIA
OTHERWISE NORMAL ECG
WHEN COMPARED WITH ECG OF 10-MAY-2024 14:14,
VENT. RATE HAS INCREASED BY 49 BPM
Echocardiogram (06/05/2024):
Left ventricle is small in size. Normal left ventricular systolic function.
Normal regional wall motion. LV ejection fraction is 65-70% by Botello's method
of discs. Mild concentric left ventricular hypertrophy. Normal diastolic
function.
Normal right ventricular size and function.
No significant valvular pathology.
Compared to prior study dated 11/23/2021, there is no significant change
�
Discharge Plan
-
Patient Disposition: Home (Routine Discharge)
Discharge Diagnosis/Procedures: Metabolic acidosis
Tachycardia likely secondary to metabolic acidosis
Posterior Cervical Foraminotomy and Diskectomy of the right C4-C5 at [facility] on
Type 2 Diabetes
Hyperlipidemia
Hypothyroidism
Condition: Fair
Diet: Diabetic, Carb Controlled
Activity: No restrictions
Driving Restrictions: As prior to admission
Bathing Restrictions: None
Referrals:
RAY CLAROS CRNP [Family Provider] - in less than 1 week
Additional Discharge Medication Instructions: Stop Jardiance and Mounjaro
Talk to Primary and Endocrinology before Resuming
Prescriptions:
Continued
cyclobenzaprine 10 MG tablet
10 mg PO TIDPRN PRN (Reason: spasm) Qty: 9 0RF
therapeutic multivitamin Tablet
1 tab PO DAILY
CombiPatch 0.05-0.25 mg/24 hr Patch Semiweekly
1 patch TRANSDERMAL Q72H
levothyroxine 75 mcg Tablet
75 mcg PO DAILY
gabapentin 300 mg Capsule
300 mg PO TIDPRN PRN (Reason: moderate pain)
oxycodone 5 mg Tablet
5 mg PO Q8HPRN PRN (Reason: severe pain)
rosuvastatin 20 mg Tablet
20 mg PO HS
levocetirizine [Xyzal] 5 mg Tablet
5 mg PO HS
Held
Jardiance 25 mg Tablet
25 mg PO DAILY
Hold Instructions: Do not use until you follow up with PCP/Store Person
Mounjaro 5 mg/0.5 mL Pen Injector
5 mg SC MO
Hold Instructions: Do not take until you follow up with PCP/Store Person
Discharge Orders:
Discharge Patient (As Directed); Ordered 06/05/24
Ordered By: Jose Wolf
Discharge Date and Time
Discharge Date/Time: 06/05/24 16:38
Print Language: MOROCCAN
--- NOTE | 2024-06-06 10:52 | W.PN.UPDATE ---
Update Note
Progress Note Update
Called patient and let her know to follow up with her primary care physician regarding the hepatic cysts measuring up to 7 cm that were found on her CT scan. Patient advised that she would probably need an MRI for further follow up.
== END 2024-06-05 16:38 | disposition home or self-care (01) | DRG 641 ==
LOC: 4 EAST ACU 18:03
PROVIDERS: Emergency Medicine; Nurse Practitioner Family; ADMITTING PHYSICIAN Hospitalist; EMERGENCY PHYSICIAN Emergency Medicine; FAMILY PHYSICIAN Nurse Practitioner Gerontology
DX: E87.29 Other acidosis (principal); J98.11 Atelectasis; E78.5 Hyperlipidemia, unspecified; E03.9 Hypothyroidism, unspecified; E11.9 Type 2 diabetes mellitus without complications; F41.9 Anxiety disorder, unspecified; F45.8 Other somatoform disorders; Z11.52 Encounter for screening for COVID-19; K76.89 Other specified diseases of liver; F32.A Depression, unspecified; Z79.84 Long term (current) use of oral hypoglycemic drugs; T38.3X5A Adverse effect of insulin and oral hypoglycemic [antidiabetic] drugs, initial encounter; R00.0 Tachycardia, unspecified
CPT/HCPCS: 71275; 80048; 80053; 81003; 81015; 82805; 82962; 83036; 84436; 84443; 84484; 85025; 85027; 85379; 86803; 87040; 87502; 87811; 93005; 93306; 96360; 99285; Q9967